=== PATIENT | male | born 1980 | race African-American/Black ===

== ENCOUNTER 2016-08-30 12:18 | Emergency (ER) | payer BC ==
[2016-08-30 14:51] VITALS: BP 125/96
--- NOTE | 2016-08-30 15:51 | UC ---
Skin Complaint HPI - HPI Summary HPI Summary: Has a genital herpes outbreak. Needs Valtrex. Travelling, can't get in to primary doctor. Has had before, knows what he needs. - History of Current Complaint Chief Complaint: [facility] Time Seen by Provider: 08/30/16 15:42 Stated Complaint: RASH COMPLAINT Hx Obtained From: Patient Onset/Duration: Gradual Onset, Lasting Days - 2 Timing: Constant Onset Severity: Mild Current Severity: Mild Location: Other - genitals Character: Pain, Redness, Raised Aggravating: Touch Alleviating: Nothing Associated Signs & Symptoms: Positive: Negative Similar Episode/Dx as: genital Herpes simplex - Allergy/Home Medications Allergies/Adverse Reactions: Allergies Allergy/AdvReac Type Severity Reaction Status Date / Time No Known Allergies Allergy Verified 08/30/16 14:47 Review of Systems Constitutional: Negative Skin: Rash Eyes: Negative ENT: Negative Respiratory: Negative Cardiovascular: Negative Gastrointestinal: Negative Genitourinary: Negative Motor: Negative Neurovascular: Negative Musculoskeletal: Negative Neurological: Negative Psychological: Negative All Other Systems Reviewed And Are Negative: Yes PMH/Surg Hx/FS Hx/Imm Hx Previously Healthy: Yes Endocrine History Of: Denies: Diabetes Cardiovascular History Of: Denies: Cardiac Disorders Respiratory History Of: Denies: COPD GI/ History Of: Denies: Gastroesophageal Reflux Neurological History Of: Denies: TIA Psychological History Of: Denies: Anxiety Cancer History Of: Denies: Lung Cancer - Surgical History Surgical History: Yes Surgery Procedure, Year, and Place: appy - Family History Known Family History: Positive: Hypertension - Social History Occupation: Employed Full-time Lives: With Family Alcohol Use: Occasionally Substance Use Type: None Smoking Status (MU): Never Smoked Tobacco Have You Smoked in the Last Year: No Physical Exam Triage Information Reviewed: Yes Appearance: Well-Appearing, No Pain Distress, Well-Nourished Vital Signs: Initial Vital Signs Temp 98.6 F 08/30/16 14:45 Pulse 90 08/30/16 14:45 Resp 16 08/30/16 14:45 BP 125/96 08/30/16 14:45 Pulse Ox 100 08/30/16 14:45 Vital Signs Reviewed: Yes Eye Exam: Normal Neck exam: Normal Respiratory Exam: Normal Cardiovascular Exam: Normal Musculoskeletal Exam: Normal Neurological Exam: Normal Psychological Exam: Normal Skin Exam: Other - he describes a typical Herpetic genital rash. I didn't examine him, he says he's had it several times before Course/Dx - Diagnoses Provider Diagnoses: genital Herpes simplex Discharge - Discharge Plan Condition: Stable Disposition: HOME Prescriptions: ValACYclovir (*) [Valtrex 500 mg (*)] 500 mg PO BID #13 tab Patient Education Materials: Genital Herpes Simplex (ED) Referrals: Beth Lazo PA [Primary Care Provider] - Additional Instructions: When you re-establish with a primary care doctor, ask about daily Valtrex to gonzalez off outbreaks of Herpes. If you are getting several outbreaks a year, it may be worth taking a daily medication to lessen the outbreaks.
== END 2016-08-30 16:06 | disposition home or self-care (01) ==
LOC: UCCORT 12:18
DX: A60.00 Herpesviral infection of urogenital system, unspecified (principal)
CPT/HCPCS: 99212; G0463

== ENCOUNTER 2018-08-28 11:53 | Emergency (ER) | payer BC ==
[2018-08-28 12:30] VITALS: BP 136/90
--- NOTE | 2018-08-28 13:21 | UC ---
General HPI - HPI Summary HPI Summary: States he is having another herpetic genital outbreak. Was diagnosed by swab when he had his first outbreak in college. Last outbreak was back in February. Past two years has had more frequent outbreaks. Is trying to get established with a PCP. Is not currently sexually active. Declined further STI testing. Ran out of valtrex. - History of Current Complaint Chief Complaint: [facility] Stated Complaint: PERSONAL Time Seen by Provider: 08/28/18 13:11 Pain Intensity: 0 - Allergy/Home Medications Allergies/Adverse Reactions: Allergies Allergy/AdvReac Type Severity Reaction Status Date / Time No Known Allergies Allergy Verified 08/28/18 12:24 PMH/Surg Hx/FS Hx/Imm Hx Previously Healthy: Yes - Surgical History Surgical History: Yes Surgery Procedure, Year, and Place: appy - Family History Known Family History: Positive: Hypertension - Social History Alcohol Use: Occasionally Substance Use Type: None Smoking Status (MU): Never Smoked Tobacco Have You Smoked in the Last Year: No Review of Systems All Other Systems Reviewed And Are Negative: Yes Genitourinary: Positive: Vaginal/Penile Pain, Vaginal/Penile Tenderness Physical Exam Triage Information Reviewed: Yes Appearance: Well-Appearing Vital Signs: Initial Vital Signs Temp 97.7 F 08/28/18 12:25 Pulse 92 08/28/18 12:25 Resp 18 08/28/18 12:25 BP 136/90 08/28/18 12:25 Pulse Ox 98 08/28/18 12:25 Vital Signs Reviewed: Yes Male Genital Exam: Positive: Other - minimal vesicular lesions on mid penis. No erythema or drainage Course/Dx - Course Course Of Treatment: This is a 38 yr old here with genital herpes outbreak recurrent. Declined further STI testing. Recommend establishing with a Primary care provider. Start Valtrex as prescribed. Recommend discussing with your primary taking valtrex for suppression therapy for recurrent outbreaks - Diagnoses Provider Diagnosis: Genital herpes Discharge - Sign-Out/Discharge Documenting (check all that apply): Patient Departure All imaging exams completed and their final reports reviewed: No Studies - Discharge Plan Condition: Good Disposition: HOME Prescriptions: ValACYclovir (*) [Valtrex 500 mg (*)] 500 mg PO BID #6 tab Referrals: No Primary Care Phys,NOPCP [Primary Care Provider] - Additional Instructions: Recommend establishing with a Primary care provider - information provided Start Valtrex as prescribed Recommend discussing with your primary taking valtrex for suppression therapy for recurrent outbreaks - Billing Disposition and Condition Condition: GOOD Disposition: Home
== END 2018-08-28 13:27 | disposition home or self-care (01) ==
LOC: UCCORT 11:53
DX: A60.01 Herpesviral infection of penis (principal)
CPT/HCPCS: 99212; G0463